=== PATIENT | female | born 1970 | race Hispanic/Latino ===

== ENCOUNTER → 2024-08-16 | Day surgery (SDC) | payer OTHER ==
[~2024-08-16] MED LIST: AMLODIPINE BESYL5 MG PO; BENICAR20 MG PO; CELEBREX100 MG PO; GLUCAGON FOR INJ 1 MG VIAL ONE; GLYCOPYRROLATE INJ 0.2 MG/ML VIAL ONE; HYOSCYAMINE SULFATE 0.5 MG/ML INJ ONE; LIDOCAINE HCL 2% LOCAL INJ 5 ML SDV VIAL INJ ONE; MAGNESIUM OXID400 MG PO; MIDAZOLAM HCL 2 MG/2 ML VIAL ONE; OMEGA 3 1,0001 EACH PO; POTASSIUM99 M1 PO; PROPOFOL IV EMULSION 50 ML IV ONE; VIT D PO; VITB12 PO; ZINC PO
[2024-08-16] MEDS: LACTATED RINGER'S 1,000 ML ONE (06:45)
[2024-08-16 08:46] VITALS: TEMP 97.4
[2024-08-16 09:10] VITALS: BP 137/90; PULSE 77; RESP 18; O2SAT 99
== END | disposition home or self-care (01) ==
LOC: OR 06:02 → EDBD 08:30
PROVIDERS: ATTEND Internal Medicine Gastroenterology
DX: Z12.11 Encounter for screening for malignant neoplasm of colon (principal); R10.13 Epigastric pain; D12.5 Benign neoplasm of sigmoid colon; K63.5 Polyp of colon; K64.8 Other hemorrhoids; I10 Essential (primary) hypertension; K76.0 Fatty (change of) liver, not elsewhere classified; Z01.810 Encounter for preprocedural cardiovascular examination; Z79.899 Other long term (current) drug therapy
CPT/HCPCS: 43239; 45385; 93005; J1610; J1980; J2003; J2250; J2470; J2704; J7121; 45378